=== PATIENT | female | born 1945 | race Caucasian/White ===

== ENCOUNTER 2023-10-26 08:31 | Emergency (ER) | payer OTHER ==
[~2023-10-26] VITALS: Ht 167.6 cm; Wt 81.6 kg
[2023-10-26 08:36] VITALS: BP 106/67; PULSE 87; RESP 20; TEMP 97.3; O2SAT 99
--- NOTE | 2023-10-26 08:37 | NUR ---
BIBA BLS TO ER BED 3
--- NOTE | 2023-10-26 09:17 | NUR ---
77 Y/O FEMALE PT. BIB AMBULANCE FROM HOME S/P FALL AND DIZZINESS. PT. SPEAKING IN FULL CLEAR SENTENCES. DENIES CP/SOB. 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 RESPIRATIONS EVEN UNLABORED. PLAN OF CARE ONGOING.
--- NOTE | 2023-10-26 09:18 | NUR ---
EKG DONE AND GIVEN TO DR. LAKE FOR INTERPREATION.
[2023-10-26 09:56] LABS: APPEARANCE,URINE CLEAR (CLEAR); BILIRUBIN,URINE NEGATIVE (NEGATIVE); BLOOD, URINE NEGATIVE (NEGATIVE); COLOR,URINE YELLOW (YELLOW); LEUKOCYTE ESTERASE ,URINE TRACE (NEGATIVE); NITRITE, URINE NEGATIVE (NEGATIVE); PROTEIN,URINE NEGATIVE (NEGATIVE); UGLUCOSE NEGATIVE (NEGATIVE); UROBILINOGEN,URINE 0.2 EU/dL (0.2 - 1)
[2023-10-26 10:05] LABS: BACTERIA,URINE FEW /HPF (None Seen); RBC,URINE 0-5 /HPF (0-5); SQUAMOUS EPITHELIAL CELL,UR 0-3 (FEW) /LPF (0-3 (FEW)); WBC,URINE 0-5 /HPF (0-5)
--- NOTE | 2023-10-26 10:29 | NUR ---
PT. WAS ABLE TO WALK SLOWLY WITH A WALKER. REQUESTING TRANSPORATION TO TAKE HER HOME. PT. DENIES DIZZINESS.
[2023-10-26 10:34] VITALS: BP 105/72; PULSE 78; RESP 20; TEMP 97.8; O2SAT 98
--- NOTE | 2023-10-26 10:44 | NUR ---
Patient discharged with v/s stable. Written and verbal after care instructions given and explained. Patient verbalized understanding. Wheel Chair Assisted with to car. All questions addressed prior to discharge. Advised to follow up with PMD.
== END 2023-10-26 10:44 | disposition home or self-care (01) ==
LOC: MED 08:31
DX: R53.1 Weakness (principal); I10 Essential (primary) hypertension; F17.200 Nicotine dependence, unspecified, uncomplicated; Z98.890 Other specified postprocedural states; W18.39XA Other fall on same level, initial encounter; Y92.89 Other specified places as the place of occurrence of the external cause; Y93.89 Activity, other specified; Y99.8 Other external cause status
CPT/HCPCS: 81001; 93005; 99283